=== PATIENT | female | born 1985 | race African-American/Black ===

== ENCOUNTER 2019-05-06 10:48 | Inpatient (IN) ==
[2019-05-06] MEDS ORDERED: SENOKOT PO PRN (12:18)
[2019-05-06] MEDS ORDERED: NICOTINE GUM BUCCAL PRN (12:18)
[2019-05-06] MEDS ORDERED: SEROQUEL PO PRN (12:18)
[2019-05-06] MEDS ORDERED: DESYREL PO PRN (12:18)
[2019-05-06] MEDS ORDERED: MAALOX PLUS LIQUID PO PRN (12:18)
[2019-05-06] MEDS ORDERED: ZOFRAN IM PRN (12:18)
[2019-05-06] MEDS ORDERED: DULCOLAX PR PRN (12:18)
[2019-05-06] MEDS ORDERED: MOTRIN PO PRN (12:18)
[2019-05-06] MEDS ORDERED: NICODERM PATCH TD PRN (12:18)
[2019-05-06] MEDS ORDERED: ZOFRAN IV PRN (12:18)
[2019-05-06] MEDS ORDERED: PHENOBARBITAL IV PRN (12:18)
[2019-05-06] MEDS ORDERED: TUBERSOL ID ONE (12:18)
[2019-05-06] MEDS ORDERED: ZOFRAN ODT PO PRN (12:18)
[2019-05-06] MEDS ORDERED: TYLENOL PO PRN (12:18)
[2019-05-06] MEDS ORDERED: D5W 1,000 ML IV PRN (12:18)
[2019-05-06] MEDS ORDERED: IMODIUM PO PRN ×2 (12:18)
[2019-05-06] MEDS ORDERED: ROBAXIN PO PRN (12:26)
[2019-05-06] MEDS ORDERED: ATARAX PO PRN (12:26)
[2019-05-06] MEDS ORDERED: BENTYL PO PRN (12:26)
[2019-05-06] MEDS ORDERED: SALINE LOCK IV FLUID XX ONE (12:26)
[2019-05-06 13:12] LABS: HEMATOCRIT 30.3 % (37.0-47.0); MCH 28.6 PG (27-31); MCV 86.6 FL (81-99); MPV 9.3 FL (7.4-10.4); RBC 3.5 XMIL (4.2-5.4); RDW 15.1 % (11.5-14.5); WBC 3.75 X1000 (4.8-10.8)
[2019-05-06] MEDS: LIBRIUM PO SCH ×2 (13:14→19:56)
[2019-05-06 13:17] LABS: PROTIME 13.7 Seconds (11.0-16.0)
[2019-05-06] MEDS ORDERED: APRESOLINE IV PRN (13:27)
[2019-05-06 13:31] LABS: AGAP 14; ALBUMIN 4.6 g/dL (3.5-5.0); ALKALINE PHOSPHATASE 68 U/L (32-104); AMYLASE 73 U/L (20-200); BUN 9 mg/dL (8-22); CALCIUM 9.1 mg/dL (8.8-10.2); CHLORIDE 101 mmol/L (98-107); COSMO 279; CREATININE 0.6 mg/dL (0.5-0.9); ESTIMATED GFR > 60; GLUCOSE 86 mg/dL (70-104); GOT 25 U/L (10-30); GPT 11 U/L (10-36); LIPASE 26 U/L (13-60); POTASSIUM 3.6 mmol/L (3.5-5.1); SODIUM 141 mmol/L (136-145); TCO2 26 mmol/L (25-35); TOTAL PROTEIN 7.5 g/dL (6.3-8.3)
[2019-05-06 13:42] LABS: URINE SOURCE CLEAN CATCH
[2019-05-06 13:45] LABS: BILIRUBIN URINE NEGATIVE (NEGATIVE); BLOOD URINE MODERATE (NEGATIVE); COLOR YELLOW; GLUCOSE URINE NEGATIVE (NEGATIVE); KETONE URINE NEGATIVE (NEGATIVE); LEUKOCYTES URINE NEGATIVE (NEGATIVE); NITRITE URINE NEGATIVE (NEGATIVE); PH URINE 6.5; PROTEIN URINE 70 mg/dL (NEGATIVE); SP GRAVITY URINE 1.025; TURBIDITY URINE CLEAR (CLEAR); UROBILINOGEN URINE NORMAL (NORMAL)
[2019-05-06 13:56] LABS: URINE RBC TNTC /HPF (<10); URINE WBC <10 /HPF (<10)
[2019-05-06 13:57] LABS: UR EPITHELIAL CELLS >10 /HPF (<10); URINE BACTERIA 1+ /HPF; URINE CASTS NONE SEEN; URINE CRYSTALS NONE SEEN; URINE YEAST NONE SEEN
[2019-05-06 13:59] LABS: UR AMPHETAMINES QUAL NONE DETECTED (NONE DETECT); UR BARBITUATES QUAL NONE DETECTED (NONE DETECT); UR BENZODIAZEPIN QUAL NONE DETECTED (NONE DETECT); UR CANNABINOIDS QUAL PRESUMPTIVE POSITIVE (NONE DETECT); UR COCAINE QUAL NONE DETECTED (NONE DETECT); UR METHADONE QUAL NONE DETECTED (NONE DETECT); UR METHAMPHETAMINE QUAL NONE DETECTED (NONE DETECT); UR OPIATES QUAL NONE DETECTED (NONE DETECT); UR OXYCODONE QUAL NONE DETECTED (NONE DETECT); UR PCP QUAL NONE DETECTED (NONE DETECT); UR PROPOXYPHENE QUAL NONE DETECTED (NONE DETECT); UR TCA QUAL NONE DETECTED (NONE DETECT)
[2019-05-06] MEDS ORDERED: M.V.I.-12 10 ML, FOLIC ACID 1 MG, MAGNESIUM SULFATE 1 GM, THIAMINE 100 MG in NS 1,000 ML IV ONE (14:00)
[2019-05-07] MEDS: LIBRIUM PO SCH ×3 (00:06→13:14)
[2019-05-07] MEDS ORDERED: PROTONIX PO SCH (07:00)
[2019-05-07] MEDS ORDERED: VITAMIN B-1 PO SCH (09:00)
[2019-05-07] MEDS ORDERED: THERA M PLUS PO SCH (09:00)
[2019-05-07] MEDS ORDERED: FOLIC ACID PO SCH (09:00)
[2019-05-07 11:37] VITALS: BP 129/90
--- NOTE | 2019-05-08 17:41 | DISCHARGE SUMMARY ---
ADMISSION DATE: 05/06/2019 DISCHARGE DATE: 05/07/2019 DISCHARGE DIAGNOSES: 1. Patient left against medical advice. 2. Seizure-type activity. 3. Nausea and vomiting. 4. Abdominal pain. 5. Myalgias. Polysubstance use and abuse with opiates. CONSULTATIONS: None. PROCEDURES: None. BRIEF HOSPITAL COURSE: Patient is a 34-year-old female who presented to the hospital with nausea, vomiting, abdominal pain, myalgias. Notes that she has been using and abusing opiates. Notes that she wants to get her life back and stop doing such. While she was in the hospital, she states that she was about to have a seizure and after a few seconds of shaking she then told the nurse that her seizure was over and she wanted to go down and smoke. The nurse discussed with her that was not an option that she just had a seizure and therefore we could not walk her downstairs and out into the parking lot to smoke. If she had another seizure, she certainly could get hurt. A little while later, Ms. Allred told the nurse that her banana bag had treated her seizures and that she feels good and that she has not had a seizure for at least a month now. States that she can always tell when she is going to have a seizure. Again, they discussed with her that seems somewhat unusual to the typical seizure activity of most individuals and we certainly need to wait a little while longer before going to smoke. Shortly after this event, Ms Mejia told the nurse that she had a change in family plans and that she needed to sign out AMA and go home. As she was awake, alert, oriented they did not prevent her from signing out AMA. cc: Palmer Luther MD
--- NOTE | 2019-05-25 20:28 | HISTORY AND PHYSICAL ---
CHIEF COMPLAINT: Nausea and vomiting. HISTORY OF PRESENT ILLNESS: The patient is a 34-year-old female who presented to [facility] secondary to nausea, vomiting, abdominal pain, myalgias, paresthesias. Notes that she has been drinking heavily. She has been trying to stop, but withdrawal symptoms become too severe. SOCIAL HISTORY: She is , unemployed. Lives at home in [place]. PAST MEDICAL HISTORY: Significant for DTs during withdrawal. She has had seizures secondary to alcohol withdrawal. She has had blackouts, history of PTSD and anxiety. MEDICATIONS: No current medications. ALLERGIES: No known drug allergies. REVIEW OF SYSTEMS: CIWA score is elevated at 36 secondary to moderate anxiety, tremors, moderate sweating, severe headache, skin crawling, frequent fidgeting. She has mild sensitivity to light. She has got increased skin sensitivity. She is easily confused. Does have a history of DTs and seizures. Denies any chest pain, palpitations, having difficulty following commands. Has some nausea, vomiting. Denies dysuria, frequency, urgency, hesitancy, polyuria or polydipsia, skin rashes, weight loss, weight gain. SUBSTANCE ABUSE HISTORY: She was in treatment for alcohol in 2007 for 3 days, remained sober for 3 weeks. Notes alcohols has caused social and emotional problems. She has been trying to get help, has been trying to stop, but she has been unable to do so. Started drinking at 19. Has been binge drinking. Currently drinking a pint per day with binge drinking. On top of that, history of marijuana. She smokes typically daily to help with withdrawal. Started smoking at age 16. Currently smokes a half of pack a day. FAMILY HISTORY: Noncontributory. PHYSICAL EXAMINATION: VITAL SIGNS: Reviewed. GENERAL: She is awake, alert, oriented. She is in no current respiratory distress. HEENT: Normocephalic. NECK: Supple. CARDIOVASCULAR: Regular rate. CHEST: Clear. ABDOMEN: Soft. EXTREMITIES: Moves all extremities. NEUROLOGIC: No focal changes. SKIN: Warm dry. No rashes. ASSESSMENT: 1. Nausea and vomiting. 2. Abdominal pain. 3. Myalgias. 4. Paresthesias. 5. Paroxysmal sweating. 6. History of delirium tremens. 7. Alcohol abuse, withdrawal and stabilization. PLAN: We are going to admit the patient to the hospital, place her on IV banana and oxygen as needed. We will monitor closely for withdrawal, place her on high-dose Librium. Continue counseling. Further orders as needed. cc: Palmer Luther MD
== END 2019-05-07 16:45 | disposition left against medical advice (07) | DRG 894 ==
LOC: P.DIRADM 10:54 → P.MEDSURG 11:41
PROVIDERS: ADMIT Family Medicine; ATTEND Family Medicine

== ENCOUNTER 2019-05-11 02:28 | Inpatient (IN) ==
[2019-05-11] MEDS ORDERED: M.V.I.-12 10 ML, FOLIC ACID 1 MG, MAGNESIUM SULFATE 1 GM, THIAMINE 100 MG in NS 1,000 ML IV ONE (03:18)
[2019-05-11] MEDS ORDERED: NS 1,000 ML IV ONE ×2 (03:19→05:47)
--- NOTE | 2019-05-11 03:26 | PROVIDER DOCUMENTATION ---
[id number] Abuse/Overdose - General Chief Complaint: Intoxicated Stated Complaint: INTOXICATION Time Seen by Provider: 05/11/19 03:10 Source: patient, family, old records Allergies/Adverse Reactions: Allergies Allergy/AdvReac Type Severity Reaction Status Date / Time Latex, Natural Rubber AdvReac ITCHING Verified 05/06/19 12:51 Home Medications: Home Medication List Medication Instructions Recorded Confirmed Last Taken Type NK [No Home Medications] 05/06/19 05/11/19 Unknown History - History of Present Illness-Drug/Alcohol Nature of Presenting Problem: Dropped off in ER by after drinking "a pint of [place]." Patient is altered, 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 States she is having a seizure, then shakes her arms and legs. Patient alert and talking during this "seizure." This episode of drinking or use began:: this evening Severity: reports: moderate Situational problems related to:: reports: spouse Psychiatric Complaints: reports: altered mental status, impaired concentration Associated Symptoms: reports: trouble walking Any injuries associated with this episode of intoxication?: No Similar Symptoms Previously?: Yes Recently seen or treated by another doctor?: Yes (recently left A[facility] from [facility]) - Substance Abuse Substance Use: reports: alcohol, opiates - Alcohol Abuse Type and amount of last drink?: pint of [place] Usually drinks:: daily Other alcohols?: reports: N/A - Detox/Hospitalizations Previous detox/rehab admissions?: Yes Date of last Detox?: 05/05/19 Where was last detox?: here Currently enrolled in a Methadone Program?: No Review of Systems - Adult - REVIEW OF SYSTEMS - ADULT ROS:: limited per condition Constitutional: reports: no symptoms reported Eyes: reports: no symptoms reported Ears, Nose, Mouth & Throat: reports: no symptoms reported Cardiovascular: reports: no symptoms reported Respiratory: reports: no symptoms reported Gastrointestinal: reports: no symptoms reported Genitourinary: reports: no symptoms reported Musculoskeletal: reports: no symptoms reported Integumentary: reports: no symptoms reported Neurological: reports: see HPI, dizziness/vertigo, seizure, tremors Psychiatric: reports: see HPI, alcohol/drug dependence. denies: anti-depressant use, suicidal thoughts Endocrine: reports: no symptoms reported Hematologic/Lymphatic: reports: no symptoms reported Allergic/Immunologic: reports: no symptoms reported All Other Systems: Reviewed and Negative Past History - Adult - PAST MEDICAL HISTORY-ADULT Review of Records: reports: Old Records Reviewed, Nursing Assessment Review, Medications Reviewed, Social history reviewed & non-contributory. Major Childhood Illnesses: reports: denies history Cardiovascular: reports: denies history Respiratory: reports: denies history Gastrointestinal: reports: denies history Obstetrical/Gynecological: reports: denies history Genitourinary: reports: denies history Musculoskeletal: reports: denies history Neurological: reports: denies history Endocrine/Immune: reports: denies history Other Conditions: reports: denies history - PRIOR SURGERIES/PROCEDURES Surgical/Procedure History: reports: colonoscopy - IMMUNIZATION STATUS Childhood Immunizations: UTD Flu Vaccine: UTD - FAMILY HISTORY Family History: reviewed, not pertinent - SOCIAL HISTORY Smoking: cigarettes, less than 1 pack/day Provider spent 3-5 mins advising pt. on dangers of tobacco.: Discussed manners to quit use, and f/u contacts for add'l counseling. Substance Use: alcohol, opiates Alcohol Use Frequency: every day Number of drinks per typical drinking period:: 5-10 drinks Living Situation: family Physical Exam-General - PHYSICAL EXAM-ADULT Initial Vital Signs Reviewed: Yes (Hypertensive) - CONSTITUTIONAL General Appearance: mild distress, thin, lethargic, slow to respond, other (alcohol on breath) - EYES Eyes: PERRL/EOMI, pink conjunctivae - HEAD, EARS, NOSE, MOUTH & THROAT HENMT: normocephalic/atraumatic, normal ENT inspection. negative: moist mucous membranes (dry) - NECK Neck: non-tender, full range of motion, supple, normal inspection - RESPIRATORY Respiratory: chest non-tender, lungs clear, normal breath sounds, no pleuratic chest pain, no respiratory distress, no accessory muscle use - CARDIOVASCULAR Cardiovascular: normal peripheral pulses, regular rate, rhythm, no edema, no gallop, no JVD, no murmur - GASTROINTESTINAL (ABDOMEN) Abdominal Exam: non tender, soft, no organomegaly, no pulsatile mass - LYMPHATIC Lymphatic: no adenopathy - MUSCULOSKELETAL Back Exam: normal inspection, no vertebral tenderness. negative: decreased range of motion Extremity: normal range of motion, non-tender, normal inspection, no pedal edema , no calf tenderness. 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 negative: normal thought content, oriented x 3 Progress - PLAN OF CARE/RESULTS Progress/Plan/Lab Results: Vital Signs - 8 hr 05/11/19 03:07 Temperature 98.3 F Respiratory Rate 17 Blood Pressure 183/127 O2 Sat by Pulse Oximetry 97 Bedside Urine ED: Urine Bedside Start: 05/11/19 03:20 Freq: ORDERED Status: Active Protocol: Activity Type Activity Date Activity User E-Sign Co-Sign Detail Recorded Client Recorded Date Recorded By Document 05/11/19 04:22 [id number] 05/11/19 04:23 [id number] 05/11/19 04:22 Point of Care [Bedside Point of Care] -Lot # [id number] - Results Negative -Control Line Visible? Yes Laboratory Results - last 24 hr 05/11/19 05/11/19 05/11/19 03:10 03:10 03:15 WBC RBC Hgb Hct MCV MCH MCHC RDW Std Deviation Plt Count MPV Immature Gran % (Auto) Neut % (Auto) Lymph % (Auto) Dillon % (Auto) Eos % (Auto) Baso % (Auto) Immature Gran # (Auto) Neut # (Auto) Lymph # (Auto) Dillon # (Auto) Eos # (Auto) Baso # (Auto) Sodium 142 Potassium 3.8 Chloride 102 Carbon Dioxide 22 L Anion Gap 19 BUN 5 L Creatinine 0.5 Estimated GFR/1.73 m2 > 60 BUN/Creatinine Ratio 10 Glucose 95 POC Glucose Calculated Osmolality 280 Calcium 9.3 Total Bilirubin 0.20 AST 34 H ALT 14 Alkaline Phosphatase 81 Total Protein 8.8 H Albumin 5.1 H Globulin 4.0 Albumin/Globulin Ratio 1.0 Urine Source CATH Urine Color STRAW Urine Turbidity CLEAR Urine pH 6.5 Ur Specific Central 1.004 Urine Protein NEGATIVE Ur Glucose (Stick) NEGATIVE Ur Ketones (Stick) NEGATIVE Urine Blood NEGATIVE Urine Nitrite NEGATIVE Urine Bilirubin NEGATIVE Urobilinogen Dipstick NORMAL Urine Leukocytes NEGATIVE Urine WBC (Auto) <10 Urine RBC (Auto) <10 U Epithel Cells (Auto) <10 Urine Bacteria (Auto) NEGATIVE Salicylates < 3.00 L Urine Opiates Screen NONE DETECTED Ur Oxycodone Screen NONE DETECTED Urine Methadone Screen NONE DETECTED U Propoxyphene Qual NONE DETECTED Acetaminophen < 1.2 L Ur Barbituates Screen NONE DETECTED Ur Tricyclics Screen NONE DETECTED Ur Phencyclidine Scrn NONE DETECTED Ur Amphetamines Screen NONE DETECTED U Methamphetamines Scrn NONE DETECTED U Benzodiazepines Scrn PRESUMPTIVE POSITIVE A Urine Cocaine Screen NONE DETECTED U Cannabinoids Screen NONE DETECTED Plasma/Serum Ethyl Alc 05/11/19 05/11/19 05/11/19 03:15 03:15 04:24 WBC 4.44 L RBC 4.15 L Hgb 11.8 L Hct 35.8 L MCV 86.3 MCH 28.4 MCHC 33.0 RDW Std Deviation 15.4 H Plt Count 220 MPV 10.5 H Immature Gran % (Auto) 0.2 Neut % (Auto) 43.5 Lymph % (Auto) 46.4 Dillon % (Auto) 7.0 Eos % (Auto) 2.0 Baso % (Auto) 0.9 H Immature Gran # (Auto) 0.01 Neut # (Auto) 1.93 Lymph # (Auto) 2.06 Dillon # (Auto) 0.31 Eos # (Auto) 0.09 Baso # (Auto) 0.04 Sodium Potassium Chloride Carbon Dioxide Anion Gap BUN Creatinine Estimated GFR/1.73 m2 BUN/Creatinine Ratio Glucose POC Glucose 76 Calculated Osmolality Calcium Total Bilirubin AST ALT Alkaline Phosphatase Total Protein Albumin Globulin Albumin/Globulin Ratio Urine Source Urine Color Urine Turbidity Urine pH Ur Specific Central Urine Protein Ur Glucose (Stick) Ur Ketones (Stick) Urine Blood Urine Nitrite Urine Bilirubin Urobilinogen Dipstick Urine Leukocytes Urine WBC (Auto) Urine RBC (Auto) U Epithel Cells (Auto) Urine Bacteria (Auto) Salicylates Urine Opiates Screen Ur Oxycodone Screen Urine Methadone Screen U Propoxyphene Qual Acetaminophen Ur Barbituates Screen Ur Tricyclics Screen Ur Phencyclidine Scrn Ur Amphetamines Screen U Methamphetamines Scrn U Benzodiazepines Scrn Urine Cocaine Screen U Cannabinoids Screen Plasma/Serum Ethyl Alc 256 H Orders Category Date Time Status Cardiac Monitoring DIRECTED Care 05/11/19 03:14 Active ED: Urine Bedside ORDERED Care 05/11/19 03:20 Active Finger Stick Blood Sugar (ED) DIRECTED Care 05/11/19 03:14 Active Wan Cath Insertion ORDERED Care 05/11/19 03:19 Active CHEST-PORTABLE [RAD] Stat Exams 05/11/19 03:[address] HEAD W/O CONTRAST [CT] Stat Exams 05/11/19 03:19 Taken ACETAMINOPHEN [TDM] Stat Lab 05/11/19 03:15 Completed ALCOHOL BLOOD Stat Lab 05/11/19 03:15 Completed CBC WITH ELECTRONIC DIFF [HEME] Stat Lab 05/11/19 03:15 Completed COMPREHENSIVE METABOLIC PANEL [CHEM] Stat Lab 05/11/19 03:15 Completed SALICYLATES [TDM] Stat Lab 05/11/19 03:15 Completed URINALYSIS [URINALYSIS] Stat Lab 05/11/19 03:10 Completed URINE DRUG SCREEN PL Stat Lab 05/11/19 03:10 Completed 0.9% Sodium Chloride Inj [Ns] 1,000 ml Med 05/11/19 03:44 Discontinued .ROUTE As directed 0.9% Sodium Chloride Inj [Ns] 1,000 ml Med 05/11/19 03:19 Discontinued IV 999 mls/hr Magnesium Sulfate Med 05/11/19 03:42 Discontinued 1 gm .ROUTE .STK-MED ONE Mvi [M.v.i.-12] Med 05/11/19 03:44 Discontinued 10 ml .ROUTE .STK-MED ONE Mvi [M.v.i.-12] 10 ml Med 05/11/19 03:18 Discontinued Folic Acid 1 mg Magnesium Sulfate 1 gm Thiamine 100 mg 0.9% Sodium Chloride Inj [Ns] 1,000 ml IV NOW Thiamine Med 05/11/19 03:43 Discontinued 200 mg .ROUTE .STK-MED ONE Overdose (suspected) Stat Oth 05/11/19 03:14 Ordered EKG [EKG] Stat Ther 05/11/19 03:14 Draft Result Diagrams: 05/11/19 03:15 05/11/19 03:15 - REASSESSMENT Reassessment #1 Time Reassessed: 04:56 Status: improving (Given IVF and Banana Bag. BP now normal without tx) - EKG 1 Time of EKG reading by physician:: 04:49 EKG Read and Signed by:: Aakash Seo EKG Interpretation (*Must complete 3 of following elements*): Abnormal Rate: 85 Rhythm: NSR [place]: normal QRS: LVH, other (WPW delta wave) [place] Interval: normal ST Wave: non-specific ST changes Comments: prologned QTc - XRAY 1 XRAY Study: Chest Impression: Abnormal (read by me at 0530, hyperexpanded, no PTX, no PNE) - CT/MRI 1 CT Study: Head Impression: Normal (per [facility]), See EMR Report - CONSULTS/PCP/HOSPITALIST Notification #1 *Consult/PCP/Hospitalist*: Ashkan Time Discussed: 04:56 Consult Disposition: Admit Departure - Departure Date of Disposition Decision: 05/11/19 Time of Disposition Decision: 04:51 DIAGNOSIS: Alcohol intoxication delirium, Prolonged Q-T interval on ECG, Altered mental status associated with intoxication Disposition: ADMITTED INPATIENT 09 Certified Medical Emergency: Emergent Condition: Fair Referrals and Follow-Ups: None,PCP [Primary Care Provider] - - Critical Care Note This patient required my direct & personal management of CC.: No Attestation - Physician/ ALEXEY Attestation Patient care was provided by Advanced Practice Provider:: No The physician spent face to face time with patient:: Yes Advanced Practice Provider documentation review:: Supervising physician onsite and consulted in the evaluation and care of this patient. The physician did have a face to face encounter with the patient.
[2019-05-11] MEDS ORDERED: MAGNESIUM SULFATE ONE (03:42)
[2019-05-11] MEDS ORDERED: THIAMINE ONE (03:43)
[2019-05-11] MEDS ORDERED: M.V.I.-12 ONE (03:44)
[2019-05-11] MEDS ORDERED: NS 1,000 ML ONE (03:44)
[2019-05-11 03:45] LABS: BASO# 0.04 X1000 (0.0-0.2); BASO% 0.9 % (0.0-0.8); EOS# 0.09 X1000 (0.0-0.7); HEMATOCRIT 35.8 % (37.0-47.0); HEMOGLOBIN 11.8 g/dL (12.0-16.0); IMM GRAN# 0.01 X1000 (0.0-0.04); IMM GRAN% 0.2 % (0.0-0.5); LYMPH# 2.06 X1000 (1.2-3.4); LYMPH% 46.4 % (20.5-51.1); MCH 28.4 PG (27-31); MCV 86.3 FL (81-99); MONO# 0.31 X1000 (0.11-0.59); MPV 10.5 FL (7.4-10.4); NEUT# 1.93 X1000 (1.4-6.5); NEUT% 43.5 % (42.2-75.2); PLT 220 X1000 (130-400); RBC 4.15 XMIL (4.2-5.4); RDW 15.4 % (11.5-14.5); WBC 4.44 X1000 (4.8-10.8)
[2019-05-11 04:18] LABS: URINE SOURCE CATH
[2019-05-11 04:28] LABS: BILIRUBIN URINE NEGATIVE (NEGATIVE); BLOOD URINE NEGATIVE (NEGATIVE); COLOR STRAW; GLUCOSE URINE NEGATIVE (NEGATIVE); KETONE URINE NEGATIVE (NEGATIVE); LEUKOCYTES URINE NEGATIVE (NEGATIVE); NITRITE URINE NEGATIVE (NEGATIVE); PH URINE 6.5; PROTEIN URINE NEGATIVE (NEGATIVE); SP GRAVITY URINE 1.004; TURBIDITY URINE CLEAR (CLEAR); UROBILINOGEN URINE NORMAL (NORMAL)
[2019-05-11 04:29] LABS: UR EPITHELIAL CELLS <10 /HPF (<10); URINE BACTERIA NEGATIVE /HPF; URINE RBC <10 /HPF (<10); URINE WBC <10 /HPF (<10)
--- NOTE | 2019-05-11 04:53 | EKG Report ---
Test Performed on : 05/11/2019 04:32:40 AM Test Reason : ams Blood Pressure : / mmHG Vent. Rate : 085 BPM Atrial Rate : 085 BPM P-R Int : 098 ms QRS Dur : 108 ms QT Int : 444 ms P-R-T Axes : 032 096 101 degrees QTc Int : 528 ms Normal sinus rhythm. Ventricular pre-excitation, WPW pattern type B Abnormal ECG No previous ECGs available Unconfirmed Result
[2019-05-11 04:57] LABS: UR AMPHETAMINES QUAL NONE DETECTED (NONE DETECT); UR BARBITUATES QUAL NONE DETECTED (NONE DETECT); UR BENZODIAZEPIN QUAL PRESUMPTIVE POSITIVE (NONE DETECT); UR CANNABINOIDS QUAL NONE DETECTED (NONE DETECT); UR COCAINE QUAL NONE DETECTED (NONE DETECT); UR METHADONE QUAL NONE DETECTED (NONE DETECT); UR METHAMPHETAMINE QUAL NONE DETECTED (NONE DETECT); UR OPIATES QUAL NONE DETECTED (NONE DETECT); UR OXYCODONE QUAL NONE DETECTED (NONE DETECT); UR PCP QUAL NONE DETECTED (NONE DETECT); UR PROPOXYPHENE QUAL NONE DETECTED (NONE DETECT); UR TCA QUAL NONE DETECTED (NONE DETECT)
[2019-05-11 05:27] LABS: ACETAMINOPHEN < 1.2 ug/mL (10-30); AGAP 19; ALBUMIN 5.1 g/dL (3.5-5.0); ALKALINE PHOSPHATASE 81 U/L (32-104); BUN 5 mg/dL (8-22); CALCIUM 9.3 mg/dL (8.8-10.2); CHLORIDE 102 mmol/L (98-107); COSMO 280; CREATININE 0.5 mg/dL (0.5-0.9); ESTIMATED GFR > 60; GLUCOSE 95 mg/dL (70-104); GOT 34 U/L (10-30); GPT 14 U/L (10-36); POTASSIUM 3.8 mmol/L (3.5-5.1); SALICYLATES < 3.00 mg/dL (3-10); SODIUM 142 mmol/L (136-145); TCO2 22 mmol/L (25-35); TOTAL PROTEIN 8.8 g/dL (6.3-8.3)
[2019-05-11] MEDS ORDERED: TYLENOL PO PRN (05:47)
[2019-05-11] MEDS ORDERED: ZOFRAN ODT PO PRN (05:47)
[2019-05-11] MEDS ORDERED: BENTYL PO PRN (05:49)
[2019-05-11] MEDS ORDERED: ROBAXIN PO PRN (05:49)
[2019-05-11] MEDS ORDERED: ATARAX PO PRN (05:49)
[2019-05-11] MEDS: LIBRIUM PO SCH ×3 (06:00→17:38)
--- NOTE | 2019-05-11 07:35 | Diag Imaging Result Doc PS360 ---
EXAM: CT HEAD W/O CONTRAST INDICATION: ams TECHNIQUE: This exam was performed using automated exposure control, adjustment of mA or kV according to patient size, and/or use of iterative reconstruction technique. COMPARISON: None. FINDINGS: There is no definite acute infarct given the limited sensitivity of CT versus MRI. There is no discrete intracranial mass, mass effect, or intracranial hemorrhage. The surrounding soft tissues and bony structures are essentially unremarkable. IMPRESSION: No evidence of acute intracranial pathology. Electronically signed by Andrew Manjarrez 05/11/2019 7:33 AM
--- NOTE | 2019-05-11 07:46 | Diag Imaging Result Doc PS360 ---
CHEST-PORTABLE - 05/11/2019 INDICATION: altered COMPARISON: None FINDINGS: The lungs are normally expanded and clear. Heart size and mediastinal contours are normal. No pneumothorax or pleural effusion. IMPRESSION: Negative exam. Electronically signed by [place] 05/11/2019 7:44 AM
--- NOTE | 2019-05-11 20:45 | HISTORY AND PHYSICAL ---
HISTORY OF PRESENT ILLNESS: The patient was just recently in the hospital for alcohol intoxication. Unfortunately, she declined to stay and left AMA. At this time, she re-presented to the hospital acutely intoxicated stating that she had drank a pint of [place] and her brought her to the ER. States that she does not want to drink anymore and she agrees to stay this time. Oddly enough, the patient stated she felt a seizure coming on. She started shaking in her arms and legs. The entire time she was alert and oriented. After the seizure was over, she stated she felt better. ALLERGIES: Latex. MEDICATIONS: She is on no current prescription medications. FAMILY HISTORY: Noncontributory. SOCIAL HISTORY: Substance abuse history per her H and P a few days ago. FAMILY HISTORY: As per her H and P a few days ago. PHYSICAL EXAMINATION: VITAL SIGNS: Reviewed. GENERAL: Patient is awake, alert, and oriented. HEENT: Normocephalic. NECK: Supple. CARDIOVASCULAR: Regular rate. CHEST: Clear. ABDOMEN: Soft. EXTREMITIES: Moves all extremities. NEUROLOGIC: No focal changes. ASSESSMENT: 1. Nausea and vomiting. 2. Abdominal pain. 3. Myalgias. 4. Paresthesias. 5. Paroxysmal sweating. 6. Alcohol abuse withdrawal and stabilization. PLAN: We are going to continue patient in the hospital, place her on high-dose Librium taper, continue counseling. Further orders as needed. cc: Palmer Luther MD MTDD
[2019-05-12] MEDS: LIBRIUM PO SCH ×5 (00:57→18:32)
--- NOTE | 2019-05-12 19:18 | PROGRESS NOTE ---
DATE: 05/12/2019 SUBJECTIVE: Patient has no new complaints. States that she does not feel as though she is going to have a seizure today. Thinks that she is going to be okay to go downstairs and smoke. PHYSICAL EXAMINATION: Vital Signs: Reviewed. Patient is awake and alert. She is in no current respiratory distress. HEENT: Normocephalic. Neck: Supple. Cardiovascular: Regular rate. Chest: Clear. Abdomen: Soft. Extremities: Moves all extremities. Neurologic: No changes. ASSESSMENT: 1. Nausea, vomiting. 2. Abdominal pain. 3. Myalgias. 4. Paresthesias. 5. Alcohol abuse, withdrawal, and stabilization. PLAN: Again, discussed with patient that it is highly unlikely that she can pinpoint when she is going to have a seizure, as well as that it is unusual to have a seizure and to be rhythmically shaking your upper and lower extremities, the whole time being awake, alert, oriented. We will continue Librium, continue to follow, continue counseling. Further orders as needed. cc: Palmer Luther MD
[2019-05-13 00:01] VITALS: BP 142/90
[2019-05-13] MEDS: LIBRIUM PO SCH (02:09)
--- NOTE | 2019-05-14 22:57 | DISCHARGE SUMMARY ---
ADMISSION DATE: 05/11/2019 DISCHARGE DATE: 05/12/2019 DISCHARGE DIAGNOSES: 1. Left against medical advice. 2. Noncompliance. 3. Chronic alcoholism. 4. Nausea, vomiting, resolved. 5. Myalgias, resolved. 6. Pseudoseizures. 7. Chronic tobacco abuse. Discussed with patient the perils of smoking. CONSULTATIONS: None. PROCEDURES: None. BRIEF HOSPITAL COURSE: Patient is a 34-year-old female who was admitted to the hospital secondary to alcoholism and alcohol withdrawal. The patient was seen earlier in the day on the and she denied any complaints. Stated that she was feeling better. Symptoms were improving. However, at some point on the , she again decided that she was no longer going to stay in the hospital, refused any treatment. [*]discussion and therefore left AMA. Unfortunately, once again she left AMA refusing any assistance. No discharge planning instructions or help was able to be given. cc: Palmer Luther MD
== END 2019-05-13 02:12 | disposition left against medical advice (07) | DRG 894 ==
LOC: P.MEDSURG 02:28 → P.EDIPHOLD 02:28 → P.ED 02:28 → OBSVTOIN 07:43 → SUATTDRO 07:43
PROVIDERS: ATTEND Family Medicine